=== PATIENT | female | born 1975 | race Caucasian/White ===

== ENCOUNTER 2017-12-24 17:03 | Emergency (ER) | payer MEDICARE, BC ==
[2017-12-24] MEDS: ORPHENADRINE CITRATE 60 MG/2 ML VIAL. IM (18:03)
[2017-12-24] MEDS: KETOROLAC 60 MG/2 ML INJ. IM (18:03)
[2017-12-24] MEDS ORDERED: MORPHINE SULFATE 10 MG/ML VIAL. IM (18:45)
[2017-12-24] MEDS: MORPHINE SULFATE 10 MG/ML VIAL. IM (18:46)
== END 2017-12-24 19:17 | disposition home or self-care (01) ==
LOC: ER 19:17
DX: M54.16 Radiculopathy, lumbar region (principal); Z90.710 Acquired absence of both cervix and uterus; Z98.51 Tubal ligation status; Z90.722 Acquired absence of ovaries, bilateral; F17.200 Nicotine dependence, unspecified, uncomplicated; Z88.0 Allergy status to penicillin
CPT/HCPCS: 96372; 99284-25; J1885; J2270; J2360

== ENCOUNTER 2018-01-20 12:37 | Emergency (ER) | payer MEDICARE, BC ==
[2018-01-20] MEDS: HYDROcodone/APAP 5/325MG 1 TAB TABLET PO (14:09)
== END 2018-01-20 14:59 | disposition home or self-care (01) ==
LOC: ER 12:37
DX: M54.2 Cervicalgia (principal); M54.5 Low back pain; F17.200 Nicotine dependence, unspecified, uncomplicated; Z98.51 Tubal ligation status; Z90.710 Acquired absence of both cervix and uterus; Z88.0 Allergy status to penicillin; Z88.5 Allergy status to narcotic agent; Z88.8 Allergy status to other drugs, medicaments and biological substances
CPT/HCPCS: 72100; 72125; 99284